=== PATIENT | male | born 1985 | race Caucasian/White ===

== ENCOUNTER 2019-01-28 14:22 | Emergency (ER) | payer OTHER, MEDICAID ==
[~2019-01-28] VITALS: Ht 182.9 cm; Wt 79.4 kg
[2019-01-28] MEDS ORDERED: PROPECIA1 MG PO (14:37)
[2019-01-28] MEDS ORDERED: TRUVADA 200 MG1 EAC1 ORAL (14:37)
[2019-01-28 14:56] VITALS: BP 126/74
--- NOTE | 2019-01-28 14:57 | NUR ---
ED Nurse Note: rt upper thigh pain after he got an injection of testosterone at home. ermd eval done awaiting orders.
--- NOTE | 2019-01-28 14:59 | Emergency Room Report ---
History of Present Illness General Chief Complaint: Skin Rash/Abscess Source: Patient Present Illness HPI 33-year-old male with no significant past medical history here complaining of pain and swelling in the right thigh after his friend tried to do his testosterone injection. Pain started a day ago patient denies fever chills, numbness, tingling or pain radiation. Vision is rating the pain 3 out of 10 and localized without radiation. No chest pain, palpitation, shortness of breath, abdominal pain, dizziness and headache. Patient also complains of nonpruritic and nonpainful rash in the buttocks area reports that he went to a [employer] a week ago and started noticing the rash appearing after denies discharge, dysuria, penile or rectal discharge. Denies change of lotion, soap, or contact to any new allergens. Also reports that he has been working out the past few days and feels like the swelling in his leg got worse Allergies: Coded Allergies: No Known Allergies (Unverified , 01/28/19) Patient History Past Medical History: see triage record Past Surgical History: unable to obtain Pertinent Family History: none Immunizations: UTD Reviewed Nursing Documentation: PMH: Agreed; PSxH: Agreed Nursing Documentation-PMH Past Medical History: No Stated History Review of Systems All Other Systems: negative except mentioned in HPI Physical Exam Vital Signs Date Time Temp Pulse Resp B/P (MAP) Pulse Ox O2 Delivery O2 Flow Rate FiO2 01/28/19 14:33 98.2 93 16 126/74 (91) 96 Room Air Sp02 EP Interpretation: reviewed, normal General Appearance: normal inspection, well appearing Head: normocephalic Eyes: bilateral eye normal inspection, bilateral eye PERRL ENT: normal ENT inspection, hearing grossly normal, normal pharynx, no angioedema Neck: normal inspection, full range of motion, supple Respiratory: normal inspection, chest non-tender, lungs clear, normal breath sounds, no rhonchi Cardiovascular #1: normal inspection, normal peripheral pulses, regular rate, rhythm, no edema, no gallop, no murmur Gastrointestinal: normal inspection, non tender, soft Rectal: other - eczema buttocks Genitourinary: no CVA tenderness Musculoskeletal: back normal, digits/nails normal, inflammation - right thigh, cellultiis, warm to touch, no abscess Neurologic: normal inspection, alert, oriented x3 Psychiatric: normal inspection, judgement/insight normal Skin: well hydrated, normal turgor, rash - eczema buttocks, cellulitis right thigh Lymphatic: normal inspection, no adenopathy Medical Decision Making PA Attestation Diagnosis and treatment plans were reviewed and discussed with my supervising physician Dr. Mckeon Diagnostic Impression: Primary Impression: Cellulitis of right thigh Additional Impression: Contact dermatitis ER Course 33-year-old male with no significant past medical history here complaining of pain and swelling in the right thigh after his friend tried to do his testosterone injection. Pain started a day ago patient denies fever chills, numbness, tingling or pain radiation. Vision is rating the pain 3 out of 10 and localized without radiation. No chest pain, palpitation, shortness of breath, abdominal pain, dizziness and headache. Patient also complains of nonpruritic and nonpainful rash in the buttocks area reports that he went to [place] [employer] a week ago and started noticing the rash appearing after denies discharge, dysuria, penile or rectal discharge. Denies change of lotion, soap, or contact to any new allergens. Also reports that he has been working out the past few days and feels like the swelling in his leg got worse Ddx considered but are not limited to cellulitis right thigh, abscess right thigh, buttocks, fungal infection of buttocks, Vital signs: are WNL, pt. is afebrile H&PE are most consistent with cellulitis right thigh not complicated, eczema and fungal infection of buttocks due to contact dermatitis ORDERS:, Keflex naproxen, Lotrisone cream, triamcinolone cream ED INTERVENTIONS: None required at this time. DISCHARGE: At this time pt. is stable for d/c to home. Will provide printed patient care instructions, and any necessary prescriptions. Care plan and follow up instructions have been discussed with the patient prior to discharge. follow Up with her primary care provider for further assessment if symptoms continue if increased fever chills and abscess formation return to the emergency room Last Vital Signs Date Time Temp Pulse Resp B/P (MAP) Pulse Ox O2 Delivery O2 Flow Rate FiO2 01/28/19 14:56 98.2 16 126/74 96 Room Air 01/28/19 14:33 93 Disposition: HOME, SELF-CARE Condition: Stable Scripts Clotrimazole/Betamethasone Dip* (LOTRISONE CREAM*) 15 Gm Cream..g. 2 GM TP TWICE A DAY, #15 GM 0 Refills Prov: Paolo Saldivar 01/28/19 Triamcinolone Acet (Triamcinolone Acetonide) 15 Gm Cream..g. 2 GM APPLIC BID, #15 GM Prov: Paolo Saldivar 01/28/19 Naproxen* (NAPROXEN*) 500 Mg Tablet 500 MG ORAL TWICE A DAY, #20 TAB Prov: Paolo Saldivar 01/28/19 Cephalexin* (KEFLEX*) 500 Mg Capsule 500 MG ORAL EVERY 6 HOURS for 7 Days, #28 CAP Prov: Paolo Saldivar 01/28/19 Patient Instructions: Cellulitis, [id number], Contact Dermatitis, Easy-to- Read Additional Instructions: See primary care provider for follow-up wear cotton only underwear avoid using the same thyroid for injection follow-up with your primary care provider if fever chills avoid strenuous physical activity Paolo Saldivar Jan 28, 2019 14:59
[2019-01-28] MEDS ORDERED: LOTRISONE CREAM15 GM TP (15:01)
[2019-01-28] MEDS ORDERED: CEPHALEXIN500 MG ORAL (15:01)
[2019-01-28] MEDS ORDERED: KENALOG 0.025%15 GM APPLIC (15:01)
[2019-01-28] MEDS ORDERED: NAPROXEN500 M2 ORAL (15:01)
[2019-01-28 15:31] VITALS: BP 126/74
--- NOTE | 2019-01-28 15:33 | NUR ---
ED Nurse Note: no nsg orders pt given aci and script and work note verbalized understanding ambulated out with strong and steady gait.
== END 2019-01-28 15:00 | disposition home or self-care (01) ==
LOC: EMR 15:00
DX: L03.115 Cellulitis of right lower limb (principal); L25.9 Unspecified contact dermatitis, unspecified cause
CPT/HCPCS: 99282